=== PATIENT | male | born 1990 | race African-American/Black ===

== ENCOUNTER 2020-06-23 14:18 | Emergency (ER) | payer OTHER ==
[~2020-06-23] VITALS: Ht 167.6 cm; Wt 63.5 kg
[2020-06-23] MEDS ORDERED: IBU600 MG PO (15:25)
[2020-06-23 16:30] VITALS: BP 98/64
== END 2020-06-23 16:32 | disposition home or self-care (01) ==
LOC: ER 14:18
DX: S62.397A Other fracture of fifth metacarpal bone, left hand, initial encounter for closed fracture (principal); F17.210 Nicotine dependence, cigarettes, uncomplicated; W18.39XA Other fall on same level, initial encounter; Y93.89 Activity, other specified; Y92.89 Other specified places as the place of occurrence of the external cause; Y99.8 Other external cause status